=== PATIENT | female | born 1955 | race Caucasian/White ===

== ENCOUNTER 2016-04-11 14:53 | Inpatient (IN) | payer BC ==
--- NOTE | ~2016-04-11 | DS ---
Discharge Summary [facility] [address] [place]. [address] NAME: LENO RAMOS : 57 STATUS : DIS IN PAT#: [id number] AGE: 60 ADM/REG DATE : 04/11/16 MR#: [id number] REPORT SERV DATE: 04/23/16 DICTATED BY: CRISSY PRECIADO DATE: 04/22/16 REPORT STATUS : Draft TRANSCRIBED BY: BLAIR DATE: 04/22/16 Data Collection from hospitalization DISCHARGE DIAGNOSES: 1. Non-ST elevation myocardial infarction - acute. 2. Atrial fibrillation - paroxysmal. 3. Hypertension. 4. History of stroke. 5. Tobacco use. 6. History of lung cancer. CONSULTATIONS: Tiburcio Lin N.P. PROCEDURES PERFORMED: Cardiac catheterization and percutaneous coronary intervention on 04/11/2016. MEDICATIONS: Cordarone 200 mg twice a day, Eliquis 5 mg twice a day, aspirin 81 mg daily, Coreg 12.5 mg twice a day, Plavix 75 mg daily, Benadryl 25-50 mg every six hours as needed, Zetia 10 mg daily, Lasix 20 mg daily, Prinivil 5 mg daily, and Percocet 5/325 one to two tablets every four hours as needed. CONDITION AT DISCHARGE: Stable. DISPOSITION: The patient was discharged home on a low-sodium, low-cholesterol, Mediterranean diet with activities as instructed. She would follow up with me on 05/06/2016. She would follow up with Dr. Sangita Urrutia in one week following discharge. HOSPITAL COURSE: This is a 60-year-old female who was transferred by Dr. Adriano Gil from [facility] with the diagnosis of acute inferior wall myocardial infarction. The patient has a history of prior tobacco use and quit about two years ago. She has had a right upper lobe lobectomy. She had been discharged five days prior to this admission by Dr. Ozuna. She did well until the day of this admission when she developed palpitations. She came to the emergency room because of the palpitation. She absolutely denied any chest discomfort. She had palpitations and was diagnosed with atrial fibrillation. She was treated with IV diltiazem. Dr. Gil felt that she was having an acute myocardial infarction and was transferred to [facility] by ambulance. Upon arrival, she felt well. She had no chest discomfort. Her palpitations had resolved. She was admitted to the hospital for further evaluation and treatment. Upon admission, it was felt that she would need to undergo cardiac catheterization and possible angioplasty. She was taken to the cardiac [facility] farm lab[facility] where she underwent the above- mentioned procedure. She tolerated this well, and there were no complications. The following day, she had no palpitations, chest pain, or shortness of breath. She said she felt well. Her lungs were clear. She was in a sinus rhythm. On 04/13/2016, she was in a sinus rhythm. She said she was feeling well. Her lungs remained clear. Blood pressure was under good control. She was seen by Tiburcio Lin. The patient was status post RVATS of the right upper lobe for adenocarcinoma of the lung. Apparently, she has been readmitted with a questionable ST-elevation myocardial infarction after discharged home last week. IV Discharge Summary [id number] [place]. [address] NAME: LENO RAMOS : 57 STATUS : DIS IN PAT#: [id number] AGE: 60 ADM/REG DATE : 04/11/16 MR#: [id number] REPORT SERV DATE: 04/23/16 DICTATED BY: CRISSY PRECIADO DATE: 04/22/16 REPORT STATUS : Draft TRANSCRIBED BY: BLAIR DATE: 04/22/16 diltiazem bolus and drip were started. Beta-miles was going to be added. Echocardiogram was performed. On 04/14/2016, she had no chest pain or shortness of breath. She said she was feeling well. She had no palpitations. She continued to progress. Discharge planning was performed. On 04/16/2016, she had no new complaints. She had no atrial fibrillation. Coreg, aspirin, and Plavix were continued. Amiodarone and Eliquis were going to be continued. Discharge instructions were given. Due to her improved and stable condition, she was discharged home with the above-stated instructions. Information collected by: Flor Lima I submit the above information as my discharge summary. JUD/BLAIR Crissy Preciado M.D. / [id number] CC: Adele Sargent M.D. Michael S. Loga, N.P.
[~2016-04-11 14:53] MED LIST: ACET500CAP PO; ANTI-INFLAMATORY PO; BEN25 PO; GEODON60 MG PO; GLUCCHONDR PO; L20 PO; PCET PO; ULTRAM50 PO; ZOCOR40 PO
[2016-04-11] MEDS ORDERED: L20 PO (14:58)
[2016-04-11] MEDS ORDERED: BEN25 PO (14:58)
[2016-04-11] MEDS ORDERED: PCET PO (14:58)
[2016-04-12 02:18] LABS: BUN (BLOOD UREA NITROGEN) 11 MG/DL (6-23); CALCIUM, SERUM 7.8 MG/DL (8.5-10.4); CHLORIDE, SERUM 107 MMOL/L (96-112); CO2 (CARBON DIOXIDE) 24 MMOL/L (24-34); CREATININE 0.82 MG/DL (0.55-1.02); GFR AFRICAN AMERICAN 91 ML/MIN (>=60); GFR NON AFRICAN AMERICAN 78 ML/MIN (>=60); GLUCOSE, SERUM 123 MG/DL (60-99); POTASSIUM, SERUM 3.7 MMOL/L (3.5-5.3); SODIUM, SERUM 142 MMOL/L (135-148); TROPONIN I 3.46 NG/ML (<0.05)
[2016-04-12 04:26] LABS: BUN (BLOOD UREA NITROGEN) 11 MG/DL (6-23); CALCIUM, SERUM 8.1 MG/DL (8.5-10.4); CHLORIDE, SERUM 109 MMOL/L (96-112); CO2 (CARBON DIOXIDE) 22 MMOL/L (24-34); CREATININE 0.78 MG/DL (0.55-1.02); GFR AFRICAN AMERICAN 96 ML/MIN (>=60); GFR NON AFRICAN AMERICAN 83 ML/MIN (>=60); GLUCOSE, SERUM 122 MG/DL (60-99); PHOSPHORUS, SERUM 2.3 MG/DL (2.5-4.5); POTASSIUM, SERUM 3.6 MMOL/L (3.5-5.3); SODIUM, SERUM 140 MMOL/L (135-148)
[2016-04-13 06:49] LABS: BUN (BLOOD UREA NITROGEN) 12 MG/DL (6-23); CALCIUM, SERUM 8.7 MG/DL (8.5-10.4); CHLORIDE, SERUM 103 MMOL/L (96-112); CO2 (CARBON DIOXIDE) 24 MMOL/L (24-34); CREATININE 0.88 MG/DL (0.55-1.02); GFR AFRICAN AMERICAN 83 ML/MIN (>=60); GFR NON AFRICAN AMERICAN 72 ML/MIN (>=60); GLUCOSE, SERUM 102 MG/DL (60-99); POTASSIUM, SERUM 4.1 MMOL/L (3.5-5.3); SODIUM, SERUM 136 MMOL/L (135-148)
[2016-04-14 05:30] LABS: CREATININE 0.97 MG/DL (0.55-1.02)
[2016-04-15 05:36] LABS: CREATININE 0.94 MG/DL (0.55-1.02)
[2016-04-16] MEDS ORDERED: ELIQUIS 5 MG TAB5 MG PO (11:07)
[2016-04-16] MEDS ORDERED: ASAB PO (11:08)
[2016-04-16] MEDS ORDERED: PLAVIX PO (11:08)
[2016-04-16] MEDS ORDERED: COREG12 PO (11:08)
[2016-04-16] MEDS ORDERED: ZETIA PO (11:09)
[2016-04-16] MEDS ORDERED: PRIN5 PO (11:09)
[2016-04-16] MEDS ORDERED: CORDARONE PO (11:12)
== END 2016-04-16 13:08 | disposition home or self-care (01) | DRG 246 ==
LOC: SSU2 14:53 → CCU 16:39 → 5NO 04-12 14:12
PROVIDERS: Internal Medicine Cardiovascular Disease
PROC: 027036Z Dilation of Coronary Artery, One Artery with Three Drug-eluting Intraluminal Devices, Percutaneous Approach (ICD-10-PCS; principal; 2016-04-11)
PROC: 4A023N7 Measurement of Cardiac Sampling and Pressure, Left Heart, Percutaneous Approach (ICD-10-PCS; 2016-04-11)
PROC: B2151ZZ Fluoroscopy of Left Heart using Low Osmolar Contrast (ICD-10-PCS; 2016-04-11)
PROC: B2111ZZ Fluoroscopy of Multiple Coronary Arteries using Low Osmolar Contrast (ICD-10-PCS; 2016-04-11)
DX: I21.3 ST elevation (STEMI) myocardial infarction of unspecified site (principal); I25.42 Coronary artery dissection; C34.11 Malignant neoplasm of upper lobe, right bronchus or lung; I25.10 Atherosclerotic heart disease of native coronary artery without angina pectoris; Z88.5 Allergy status to narcotic agent; Z88.2 Allergy status to sulfonamides; Z88.8 Allergy status to other drugs, medicaments and biological substances; I48.0 Paroxysmal atrial fibrillation
CPT/HCPCS: 80048; 82565; 83735; 84100; 84484; 85347; 87641; 93005; 93306; 93458; 99152; 99153; A9270-GY; C1725; C1769; C1874; C1887; C1894; C9606; J0282; J0583; J1200; J1940; J2250; J2405; J3010; Q9967

== ENCOUNTER 2016-04-22 14:22 | Emergency (ER) | payer BC ==
[2016-04-22 11:54] LABS: BASOPHILS 0.6 %; BASOPHILS ABSOLUTE 0.05 10/3/uL (0.0-0.16); EOSINOPHILS 6.6 %; HEMATOCRIT 41.3 % (36.0-48.0); HEMOGLOBIN 13.3 g/dL (12.0-16.0); IMMATURE GRANULOCYTES 0.3 %; IMMATURE GRANULOCYTES ABSOLUTE 0.03 10/3/uL (0.0-0.11); LYMPHOCYTES 25.1 %; LYMPHOCYTES ABSOLUTE 2.27 10/3/uL (0.67-4.30); MEAN CORPUS HGB CONC 32.2 g/dL (32.0-36.0); MEAN CORPUSCULAR HEMOGLOB 30.5 pg (26.0-34.0); MEAN CORPUSCULAR VOLUME 94.7 fL (80-100); MONOCYTES 7.4 %; MONOCYTES ABSOLUTE 0.67 10/3/uL (0.21-1.20); NEUTROPHILS ABSOLUTE 5.44 10/3/uL (2.02-8.40); PLATELET COUNT 588 10/3/uL (150-400); RBC DISTRIBUTION WIDTH 12.8 % (12.0-16.0); RED CELL COUNT 4.36 10/6/uL (4.0-5.6); WHITE BLOOD CELLS 9.1 10/3/uL (4.5-10.5)
[2016-04-22 11:55] LABS: MANUAL DIFF NO %
[2016-04-22 11:59] LABS: INTERNATIONAL NORMAL RATI 1.4 UNITS (-); PARTIAL THROMBO TIME 32.9 SEC (22.5-37.2); PROTIME (NOT ORD) 16.6 SEC (12.0-14.5)
[2016-04-22 12:09] LABS: CHEST PAIN PROFILE TAT 0 Hrs 21 Mins; CHLORIDE, SERUM 100 MMOL/L (96-112); CO2 (CARBON DIOXIDE) 26 MMOL/L (24-34); GFR AFRICAN AMERICAN 45 ML/MIN (>=60); GFR NON AFRICAN AMERICAN 39 ML/MIN (>=60); GLUCOSE, SERUM 104 MG/DL (60-99); POTASSIUM, SERUM 4.2 MMOL/L (3.5-5.3); SODIUM, SERUM 137 MMOL/L (135-148); TROPONIN I <0.02 NG/ML (<0.05)
[2016-04-22 12:10] LABS: BUN (BLOOD UREA NITROGEN) 22 MG/DL (6-23); CREATININE 1.47 MG/DL (0.55-1.02)
[~2016-04-22 14:22] MED LIST changes: +ASAB PO; +CORDARONE PO; +COREG12 PO; +ELIQUIS 5 MG TAB5 MG PO; +PLAVIX PO; +PRIN5 PO; +ZETIA PO
== END 2016-04-22 17:10 | disposition home or self-care (01) ==
LOC: ER 14:22
PROVIDERS: Hospitalist
DX: J90 Pleural effusion, not elsewhere classified (principal); F17.200 Nicotine dependence, unspecified, uncomplicated; Z88.2 Allergy status to sulfonamides; Z88.5 Allergy status to narcotic agent; Z88.8 Allergy status to other drugs, medicaments and biological substances; Z79.82 Long term (current) use of aspirin; Z79.899 Other long term (current) drug therapy
CPT/HCPCS: 71020; 71250; 80048; 83735; 84484; 85025; 85610; 85730; 93005; 99285